=== PATIENT | male | born 1980 | race Caucasian/White ===

== ENCOUNTER → 2017-02-26 | Outpatient (CLI) | payer BC ==
[~2017-02-26] MED LIST: AMX875 PO; FLNIN NAE; GFNSR600 PO
--- NOTE | 2017-02-26 12:01 | DIAGNOSTIC IMAGING REPORT ---
LOWER EXT JOINT WITHOUT CLINICAL HISTORY: 36 years-old Male presenting with left knee injury while taking on 02/21/2017, medial aspect primary area of pain, history of ACL damage 5 years ago to the same knee. TECHNIQUE: Multisequence, multiplanar MR imaging of the left knee was performed without the use of intravenous contrast. IV contrast: None. COMPARISON: None. FINDINGS: Bony edema noted along the posterior aspect of the lateral tibial plateau as well as along the lateral aspect of the lateral femoral condyle. Articular cartilage is intact. Extensor mechanism intact. Anterior cruciate ligament is ill-defined along the femoral to mid aspect although some fibers appear intact. Distal fibers have a wavy orientation which further suggests abnormality. Posterior cruciate ligament intact. Medial and lateral menisci intact. Possible disruption of the meniscotibial ligament along the lateral meniscus. Medial collateral ligament intact. Lateral collateral ligament complex including the biceps femoris tendon, fibular collateral ligament, popliteus tendon, and iliotibial band intact. Interfascial edema noted in the deep posterior knee. No significant intramuscular edema is appreciated. Tendons of the gastrocnemius intact. Moderate knee joint effusion. Popliteal cyst cyst noted. IMPRESSION: 1. Bony contusions of the posterior aspect of the lateral tibial plateau and lateral aspect of the lateral femoral condyle, suggesting posterolateral corner injury pattern. Apparent disruption of the meniscotibial ligament of the lateral meniscus, however, no disruption of the lateral collateral ligament complex. 2. Findings suggesting of partial anterior cruciate ligament tear. However, given the history of ACL damage, the acuity is unknown. 3. Extensive deep interfascial edema and moderate knee joint effusion. Electronically signed by: Kyler Cash M.D. 02/26/2017 12:00 PM Dictated Date/Time: 02/26/2017 11:45 AM
== END | disposition home or self-care (01) ==
LOC: C.MRIBC 10:20
PROVIDERS: ATTEND Orthopaedic Surgery Sports Medicine
DX: M25.562 Pain in left knee (principal); M79.89 Other specified soft tissue disorders; M25.462 Effusion, left knee